=== PATIENT | male | born 1945 | race Asian ===

== ENCOUNTER 2021-01-16 00:30 | Emergency (ER) | payer OTHER ==
[~2021-01-16] VITALS: Ht 175.3 cm; Wt 100.7 kg
[~2021-01-16 00:30] MED LIST: AMANTADINE100 M1 PO; BUSP15TAB2 PO; BUSP5TAB2 PO; CLON0.3D TD; DAILY VIT PO; DOCUPRENE100 MG PO; DONE5TAB PO; DRONABINOL2.5 MG PO; EQ ASPIRIN325 M1 PO; LAMOTRIGINE100 MG PO; LOSA50TA PO; MED PASS PO; METO50TA27 PO; MIRTAZAPINE7.5 MG PO; NAMENDA10 MG PO; OLANZAPINE5 M1 PO; OXCARBAZEPIN600 MG PO; PANT40TA PO; POTASSIUM CHLO20 ME1 PO; RISPERDAL3 MG PO; SEROQUEL100 MG PO; SEROQUEL200 MG PO; SEROQUEL300 MG PO; SERT100T PO; ZIPR20CA PO; ZIPR20IN IM
[2021-01-16 01:54] LABS: PLATELET COUNT 287 K/uL (142-355)
[2021-01-16 02:05] LABS: POTASSIUM 3.8 mmol/L (3.6-5.2)
[2021-01-16 03:58] VITALS: BP 140/75; TEMP 98.4
[2021-01-16] MEDS ORDERED: AMLODIPINE BESYLATE PO (04:54)
[2021-01-16] MEDS ORDERED: CLON0.1D TD (04:57)
[2021-01-16] MEDS ORDERED: TAMS0.4C PO (04:59)
[2021-01-16] MEDS ORDERED: RISP50IN IM (05:02)
[2021-01-16] MEDS ORDERED: BENADRYL ALLERG25 MG PO (05:06)
[2021-01-16] MEDS ORDERED: HALO5TAB10 PO (05:07)
[2021-01-16] MEDS ORDERED: MULTIVITAMIN/MINERAL PO (05:11)
== END 2021-01-16 03:58 | disposition still patient (30) ==
LOC: ED 00:30
PROVIDERS: Emergency Medicine Emergency Medical Services
DX: R46.89 Other symptoms and signs involving appearance and behavior (principal); F20.89 Other schizophrenia; Z11.52 Encounter for screening for COVID-19; Z04.6 Encounter for general psychiatric examination, requested by authority
CPT/HCPCS: 36416; 80053; 85027; 87635; 93005; 96360; 99284; U0003

== ENCOUNTER 2021-02-03 07:40 | Inpatient (IN) | payer OTHER ==
[~2021-02-03] VITALS: Ht 175.3 cm; Wt 96.8 kg
[~2021-02-03 07:40] MED LIST changes: +AMLODIPINE BESYLATE PO; +BENADRYL ALLERG25 MG PO; +CLON0.1D TD; +HALO5TAB10 PO; +MULTIVITAMIN/MINERAL PO; +RISP50IN IM; +TAMS0.4C PO
[2021-02-03 19:00] VITALS: BP 90/63; TEMP 96.9
[2021-02-03 20:00] VITALS: BP 102/70
[2021-02-03 21:00] VITALS: BP 11/61
[2021-02-03 22:00] VITALS: BP 107/58
[2021-02-03 22:57] VITALS: BP 98/52; TEMP 101.2; Ht 175.3 cm; Wt 96.8 kg
[2021-02-03 23:00] VITALS: BP 104/59
[2021-02-04] VITALS (21 sets, daily range): BP systolic 105–142; BP diastolic 53–78; TEMP 98.7–99.6
[2021-02-04 06:07] LABS: PLATELET COUNT 207 K/uL (142-355)
[2021-02-04 06:43] LABS: POTASSIUM 3.5 mmol/L (3.6-5.2)
[2021-02-05] VITALS (25 sets, daily range): BP systolic 110–151; BP diastolic 53–79; TEMP 98.6–99.8
[2021-02-05 06:16] LABS: POTASSIUM 3.1 mmol/L (3.6-5.2)
[2021-02-05 06:19] LABS: PLATELET COUNT 165 K/uL (142-355)
[2021-02-06] VITALS (33 sets, daily range): BP systolic 143–1553; BP diastolic 70–88; TEMP 98.5–99.1
[2021-02-06 05:42] LABS: PLATELET COUNT 178 K/uL (142-355)
[2021-02-06 05:50] LABS: POTASSIUM 3.4 mmol/L (3.6-5.2)
[2021-02-07] VITALS (20 sets, daily range): BP systolic 119–161; BP diastolic 64–87; TEMP 98.4–98.9
[2021-02-07 05:15] LABS: POTASSIUM 3.9 mmol/L (3.6-5.2)
[2021-02-07 07:27] LABS: PLATELET COUNT 172 K/uL (142-355)
[2021-02-07] MEDS ORDERED: NAC 600600 MG PEG (11:38)
[2021-02-07] MEDS ORDERED: OXCARBAZEPIN150 MG PEG (11:38)
[2021-02-07] MEDS ORDERED: FINA5TAB2 PEG (11:39)
[2021-02-07] MEDS ORDERED: ARIPIPRAZOLE10 MG PEG (11:39)
[2021-02-07] MEDS ORDERED: ESCITALOPRAM5 MG PEG (11:41)
[2021-02-07] MEDS ORDERED: SILV1CRE EX (11:41)
[2021-02-07] MEDS ORDERED: MULTIVITAMI1 PEG (11:41)
[2021-02-07] MEDS ORDERED: BUPROPION HYDR150 M2 PEG (11:43)
[2021-02-07] MEDS ORDERED: ORAZINC220 MG PEG (11:44)
[2021-02-07] MEDS ORDERED: ASCORBIC ACD500 MG PEG (11:44)
[2021-02-07] MEDS ORDERED: ASPI325T40 PEG (11:45)
[2021-02-07] MEDS ORDERED: RISP50IN IM (11:45)
[2021-02-07] MEDS ORDERED: KP FOLIC ACID1 MG PEG (11:46)
[2021-02-07] MEDS ORDERED: APAP325 MG PEG (11:47)
[2021-02-08 02:52] VITALS: BP 136/78; TEMP 98.3
[2021-02-08 06:36] LABS: PLATELET COUNT 182 K/uL (142-355)
[2021-02-08 07:05] LABS: POTASSIUM 3.7 mmol/L (3.6-5.2)
[2021-02-08 08:00] VITALS: BP 132/65; TEMP 98.2
[2021-02-08 12:00] VITALS: BP 135/71; TEMP 98.3
[2021-02-08 16:00] VITALS: BP 137/78; TEMP 97.6
[2021-02-08 20:00] VITALS: BP 138/81; TEMP 99.2
[2021-02-09 00:05] VITALS: BP 155/87; TEMP 98.5
[2021-02-09 04:00] VITALS: BP 144/83; TEMP 98.2
[2021-02-09 04:50] LABS: POTASSIUM 3.5 mmol/L (3.6-5.2)
[2021-02-09 12:00] VITALS: BP 164/92; TEMP 98.4
[2021-02-09 16:00] VITALS: BP 149/84; TEMP 98.7
[2021-02-09 20:00] VITALS: BP 150/84; TEMP 97.6
[2021-02-10] VITALS: BP 156/91; TEMP 99.1
[2021-02-10 04:00] VITALS: BP 153/88; TEMP 99
[2021-02-10 05:14] LABS: POTASSIUM 3.5 mmol/L (3.6-5.2)
[2021-02-10 12:00] VITALS: BP 138/85; TEMP 99.1
[2021-02-10 16:00] VITALS: BP 160/90; TEMP 98.5
[2021-02-10 20:00] VITALS: BP 161/90; TEMP 97.9
[2021-02-10 23:58] VITALS: BP 173/93; TEMP 97.6
[2021-02-11 04:09] VITALS: BP 177/95; TEMP 98.1
[2021-02-11 06:01] LABS: POTASSIUM 3.2 mmol/L (3.6-5.2)
[2021-02-11 08:00] VITALS: BP 162/87; TEMP 97.6
[2021-02-11] MEDS ORDERED: ASPI81TA4 PEG (11:10)
[2021-02-11] MEDS ORDERED: COLL250O TOP (11:12)
[2021-02-11 12:00] VITALS: BP 156/92; TEMP 98
== END 2021-02-11 15:05 | disposition other institution (70) | DRG 871 ==
LOC: ICU 07:40 → MED/SURG 02-07 20:15
PROVIDERS: Internal Medicine; ADMIT Internal Medicine Endocrinology, Diabetes & Metabolism; ATTEND Internal Medicine Endocrinology, Diabetes & Metabolism
PROC: 0DH63UZ Insertion of Feeding Device into Stomach, Percutaneous Approach (ICD-10-PCS; principal; 2021-02-06)
DX: A41.89 Other specified sepsis (principal); J96.01 Acute respiratory failure with hypoxia; J18.8 Other pneumonia, unspecified organism; G92.8 Other toxic encephalopathy; F02.81 Dementia in other diseases classified elsewhere, unspecified severity, with behavioral disturbance; I95.89 Other hypotension; Y95 Nosocomial condition; E78.49 Other hyperlipidemia; K27.9 Peptic ulcer, site unspecified, unspecified as acute or chronic, without hemorrhage or perforation; E11.9 Type 2 diabetes mellitus without complications; G30.8 Other Alzheimer's disease; F70 Mild intellectual disabilities; F25.0 Schizoaffective disorder, bipolar type; E87.6 Hypokalemia; R23.8 Other skin changes; L89.229 Pressure ulcer of left hip, unspecified stage
CPT/HCPCS: 36415; 36591; 36600; 80048; 80053; 82805; 85027; 87040; 87070; 87077; 87186; 87205; 87635; 94760; C1726; C1768; J0132; J1335; J1956; J2185; J2704; J3480; J3490; P9047; U0003